=== PATIENT | male | born 1965 | race Caucasian/White ===

== ENCOUNTER → 2017-01-09 | Outpatient (REF) ==
[~2017-01-09] MED LIST: ASPIRIN 32325 MG/TAB PO; ASPIRIN 81M81 MG/TA2 PO; IMDUR 30MG30 MG/TAB PO; LIPITOR 80MG80 MG PO; LOPRESSOR 550 MG/TAB PO; NORVASC 10MG10 MG PO; PLAVIX 75MG TAB75 MG PO; ZOCOR 40MG40 MG PO
[2017-01-09 13:37] LABS: PSA-TOTAL 0.51 ng/mL (0-4); THYROID STIMULATING HORMONE 2.91 uIU/mL (0.465-4.680)
== END ==
LOC: ZLAB.WCH 12:37
PROVIDERS: Internal Medicine
DX: Z01.89 Encounter for other specified special examinations (principal)
CPT/HCPCS: G0103

== ENCOUNTER → 2017-01-21 | Outpatient (CLI) | payer OTHER ==
[2017-01-21 08:23] LABS: ALBUMIN 4.4 gm/dL (3.5-5.0); BILIRUBIN,DIRECT 0.5 mg/dL (0.0-0.4); BILIRUBIN,TOTAL 1.6 mg/dL (0.0-1.0); TOTAL PROTEIN 7.7 gm/dL (6.4-8.2)
== END ==
LOC: COL.LAB 07:45
PROVIDERS: Internal Medicine
DX: E80.6 Other disorders of bilirubin metabolism (principal)

== ENCOUNTER 2017-09-29 08:10 | Inpatient (IN) | payer OTHER ==
[~2017-09-29] VITALS: Ht 177.8 cm; Wt 105.6 kg
[2017-09-29] MEDS ORDERED: GLUCOPHAGE1000 MG PO (08:27)
[2017-09-29] MEDS ORDERED: ASPIRIN 81M81 MG/TA2 PO (08:27)
[2017-09-29 09:04] LABS: BASO % 0.2 % (0.0-2.0); EOS # 0.1 (0.0-0.7); EOS % 1.1 % (0-4.0); GRAN # 5.8 (1.4-6.5); HEMATOCRIT 45.2 % (42.0-52.0); HEMOGLOBIN 15.4 g/dl (13.5-18.0); LYMPH # 1.6 (1.2-3.4); LYMPH % 18.1 % (20.0-51.0); MEAN CELL VOLUME 85 fl (80.0-100.0); MEAN CORPUSCULAR HEMOGLOBIN 29 pg (27.0-31.0); MEAN CORPUSCULAR HGB CONC 34 g/dl (33.0-37.0); MEAN PLATELET VOLUME 10.1 fl (7.4-10.4); MONO % 12.1 % (1.7-9.3); PLATELET COUNT 219 K/mm3 (130-400); RED BLOOD COUNT 5.31 M/mm3 (4.20-5.60); REDCELL DISTRIBUTION WIDTH-CV 13.8 % (11.5-14.5)
[2017-09-29 09:13] LABS: ALBUMIN 4.4 gm/dL (3.5-5.0); BILIRUBIN,TOTAL 2.7 mg/dL (0.0-1.0); C-REACTIVE PROTEIN 5.2 mg/dL (0.0-0.9); CALCIUM 9.3 mg/dL (8.4-10.2); CREATININE, serum 0.98 mg/dL (0.66-1.25); POTASSIUM 3.5 mmol/L (3.4-5.0); TOTAL PROTEIN 8.8 gm/dL (6.4-8.2)
[2017-09-29 10:52] VITALS: BP 133/79; PULSE 94; TEMP 98
[2017-09-29 15:52] VITALS: BP 147/85; PULSE 80; TEMP 98.7
[2017-09-29 20:01] VITALS: BP 135/87; PULSE 70; TEMP 98.5
[2017-09-29 23:41] VITALS: BP 98/48; PULSE 53; TEMP 98.2
[2017-09-30 04:44] VITALS: BP 121/72; PULSE 63; TEMP 98.9
[2017-09-30 07:05] LABS: BASO % 0.2 % (0.0-2.0); EOS # 0.2 (0.0-0.7); EOS % 3.5 % (0-4.0); GRAN # 3.7 (1.4-6.5); GRAN % 59.3 % (42.2-75.2); HEMATOCRIT 41.7 % (42.0-52.0); LYMPH # 1.6 (1.2-3.4); LYMPH % 25.9 % (20.0-51.0); MEAN CELL VOLUME 87 fl (80.0-100.0); MEAN CORPUSCULAR HEMOGLOBIN 29 pg (27.0-31.0); MEAN CORPUSCULAR HGB CONC 34 g/dl (33.0-37.0); MEAN PLATELET VOLUME 10.3 fl (7.4-10.4); MONO # 0.7 (0.1-0.6); MONO % 10.6 % (1.7-9.3); PLATELET COUNT 206 K/mm3 (130-400); RED BLOOD COUNT 4.79 M/mm3 (4.20-5.60); REDCELL DISTRIBUTION WIDTH-CV 13.8 % (11.5-14.5)
[2017-09-30 07:12] LABS: CALCIUM 8.3 mg/dL (8.4-10.2); CREATININE, serum 0.92 mg/dL (0.66-1.25); POTASSIUM 3.9 mmol/L (3.4-5.0)
[2017-09-30 07:29] VITALS: BP 133/78; PULSE 61; TEMP 98
[2017-09-30] MEDS ORDERED: DOXYCYCLINE HY100 MG PO (10:14)
== END 2017-09-30 12:10 | disposition home or self-care (01) | DRG 603 ==
LOC: COL.ER 08:10 → MEDICAL 10:03
PROVIDERS: Emergency Medicine; Physician Assistant
DX: L03.116 Cellulitis of left lower limb (principal); I10 Essential (primary) hypertension; E11.65 Type 2 diabetes mellitus with hyperglycemia; E78.5 Hyperlipidemia, unspecified; L27.1 Localized skin eruption due to drugs and medicaments taken internally; T36.8X5A Adverse effect of other systemic antibiotics, initial encounter; Z95.1 Presence of aortocoronary bypass graft; Z95.5 Presence of coronary angioplasty implant and graft; Z79.84 Long term (current) use of oral hypoglycemic drugs; L03.032 Cellulitis of left toe; L60.0 Ingrowing nail
CPT/HCPCS: 99223-AI; 99239; J0295; J1200; J1650; J1815; J3370; J7030; J7050

== ENCOUNTER → 2018-01-03 | Outpatient (CLI) | payer OTHER ==
[~2018-01-03] MED LIST changes: +DOXYCYCLINE HY100 MG PO; +GLUCOPHAGE1000 MG PO
[2018-01-03 08:28] LABS: BASO % 0.2 % (0.0-2.0); EOS # 0.1 (0.0-0.7); GRAN % 61.4 % (42.2-75.2); HEMATOCRIT 47.3 % (42.0-52.0); HEMOGLOBIN 15.5 g/dl (13.5-18.0); LYMPH # 1.7 (1.2-3.4); LYMPH % 25.9 % (20.0-51.0); MEAN CELL VOLUME 88 fl (80.0-100.0); MEAN CORPUSCULAR HEMOGLOBIN 29 pg (27.0-31.0); MEAN CORPUSCULAR HGB CONC 33 g/dl (33.0-37.0); MEAN PLATELET VOLUME 10.1 fl (7.4-10.4); MONO # 0.7 (0.1-0.6); MONO % 10.3 % (1.7-9.3); PLATELET COUNT 250 K/mm3 (130-400); REDCELL DISTRIBUTION WIDTH-CV 13.7 % (11.5-14.5)
[2018-01-03 08:42] LABS: ALBUMIN 4.5 gm/dL (3.5-5.0); BILIRUBIN,TOTAL 1.9 mg/dL (0.0-1.0); CALCIUM 9.6 mg/dL (8.4-10.2); CHOLESTEROL RISK RATIO 3.2; CREATININE, serum 0.95 mg/dL (0.66-1.25); MAGNESIUM 1.9 mg/dL (1.6-2.3); POTASSIUM 3.9 mmol/L (3.4-5.0); TOTAL PROTEIN 8.1 gm/dL (6.4-8.2)
[2018-01-03 08:46] LABS: PH 5 (5-8); SQUAMOUS EPITHELIAL None Seen /hpf; URINE APPEARANCE Clear; URINE BACTERIA None Seen /hpf; URINE BILIRUBIN Negative (NEGATIVE); URINE BLOOD Negative (NEGATIVE); URINE COLOR Yellow; URINE GLUCOSE Negative (NEGATIVE); URINE KETONE Negative (NEGATIVE); URINE LEUKOCYTE ESTERASE Negative (NEGATIVE); URINE NITRATE Negative (NEGATIVE); URINE PROTEIN(semi-quant) Negative (NEGATIVE); URINE RBC 0-2 /hpf; URINE UROBILINOGEN Negative (NEGATIVE); URINE WBC 0-2 /hpf
[2018-01-03 08:58] LABS: ERYTHROCYTE SEDIMENTATION RATE 8 mm/hr (0-30)
[2018-01-03 08:59] LABS: COLLECTION METHOD CLEAN CATCH
[2018-01-03 09:12] LABS: PSA-TOTAL 0.6 ng/mL (0-4)
[2018-01-03 23:39] LABS: URINE MICROALBUMIN 1.8 mg/dL (0.0-1.7)
== END ==
LOC: COL.LAB 07:42
PROVIDERS: Internal Medicine
DX: Z00.00 Encounter for general adult medical examination without abnormal findings (principal); Z12.5 Encounter for screening for malignant neoplasm of prostate; Z12.11 Encounter for screening for malignant neoplasm of colon
CPT/HCPCS: G0103

== ENCOUNTER → 2018-07-08 | Outpatient (REF) | LOC: ZLAB.WCH 16:03 | DX: Z01.89 Encounter for other specified special examinations (principal) ==

== ENCOUNTER 2020-07-16 18:15 | Inpatient (IN) | payer OTHER ==
[2020-07-16 20:15] VITALS: BP 123/70; PULSE 82; TEMP 99.6
[2020-07-16] MEDS ORDERED: COZAAR 50MG50 MG/TAB PO (20:50)
[2020-07-16] MEDS ORDERED: TRULICITY1.5 MG/0.5 SQ (20:51)
--- NOTE | 2020-07-16 23:22 | NUR ---
Patient came to medical floor room 305 from [facility] at 20:05 pm. Patient sitting up in bed upon enter the room. Patient states feeling very hungry and thristy. Provided sandwitch box and ice water. Assessment completed and charted. Med req completed. Patient denies chest pain or discomfort. Occasional non-productive moist cough noted. Patient denies SOB or dyspnea while at rest. Patient reports SOB upon talking or with ambulation. Scheduled meds given per AUG. Oriented patient to the room, call light, bathroom, etc. Call light within reach. Patient denies any needs at this time.
[2020-07-16 23:51] LABS: ARTERIAL BLD GAS TCO2 CT 25.2; ARTERIAL BLOOD GAS BASE EXCESS 0.7 (-2-2); ARTERIAL BLOOD GAS HCO3 24.1 meq/L (22-26); ARTERIAL BLOOD GAS PCO2 35.3 mmHg (35-45); ARTERIAL BLOOD GAS PO2 70.6 mmHg (80-100); ARTERIAL BLOOD GAS pH 7.45 (7.35-7.45)
[2020-07-17] VITALS (8 sets, daily range): BP systolic 110–147; BP diastolic 57–73; PULSE 65–83; TEMP 97.8–98.6
[2020-07-17 04:07] LABS: COLLECTION METHOD CLEAN CATCH
[2020-07-17 04:23] LABS: MUCOUS Present /lpf; PH 5 (5-8); SQUAMOUS EPITHELIAL None Seen /hpf; URINE APPEARANCE Clear; URINE BACTERIA None Seen /hpf; URINE BILIRUBIN Negative (NEGATIVE); URINE BLOOD Negative (NEGATIVE); URINE COLOR Yellow; URINE GLUCOSE 1+ (NEGATIVE); URINE KETONE Negative (NEGATIVE); URINE LEUKOCYTE ESTERASE Negative (NEGATIVE); URINE NITRATE Negative (NEGATIVE); URINE PROTEIN(semi-quant) 1+ (NEGATIVE); URINE RBC 0-2 /hpf; URINE UROBILINOGEN Negative (NEGATIVE)
--- NOTE | 2020-07-17 06:24 | NUR ---
VS stable throughout the night. Currently on 6L via NC. No acute respiratory distress noted. Call light within reach. Patient denies any needs at this time.
[2020-07-17 07:30] LABS: HEMATOCRIT 44.1 % (42.0-52.0); HEMOGLOBIN 14.4 g/dl (13.5-18.0); MEAN CELL VOLUME 87 fl (80.0-100.0); MEAN CORPUSCULAR HEMOGLOBIN 29 pg (27.0-31.0); MEAN CORPUSCULAR HGB CONC 33 g/dl (33.0-37.0); MEAN PLATELET VOLUME 10.9 fl (7.4-10.4); PLATELET COUNT 185 K/mm3 (130-400); RED BLOOD COUNT 5.05 M/mm3 (4.20-5.60); REDCELL DISTRIBUTION WIDTH-CV 13.4 % (11.5-14.5)
[2020-07-17 07:44] LABS: ALBUMIN 3.5 gm/dL (3.5-5.0); CALCIUM 8.2 mg/dL (8.4-10.2); CREATININE, serum 1.01 (0.66-1.25); POTASSIUM 4.2 mmol/L (3.4-5.0); TOTAL PROTEIN 6.8 gm/dL (6.4-8.2)
--- NOTE | 2020-07-17 09:11 | NUR ---
SPOO2 85% ON 6 LPM NC PLACED PT6 ON HFNC 10 LPM 91%
[2020-07-17 09:39] LABS: BURR CELLS 3+; NEUTROPHILS 81 % (42.0-75.2)
[2020-07-17 09:40] LABS: POIKILOCYTOSIS 3+
[2020-07-17 09:41] LABS: OVALOCYTES 1+; PLATELET ESTIMATE NORMAL (NORMAL)
[2020-07-17 09:43] LABS: HYPOCHROMIA 1+; LYMPHOCYTE 6 % (20.0-51.0)
--- NOTE | 2020-07-17 12:21 | NUR ---
Patient alert and oriented. denies any pain, nausea, diarrhea or SOb at this time. On 10L O2 HFNC at 91-93%. Bilateral mild tremor on upper extremities. call light within reach. Patient started on Lovenox, inform patient med is used prophylasix to prevent DVT during hospital stay. IVF NS decresed from 100ML to 60ML as ordered. started on first dose of Remdesivir 200mg/250ml. educated patient on antiviral medication to help treat his covid19+ diagnosis.
--- NOTE | 2020-07-17 13:39 | NUR ---
The patient is positive for COVID. SW contacted the patient's room phone to complete intake. The patient lives in [place] with his , Ana Lilia (ph#[phone]). His is currently hospitalized at this time. He reports independence with ADLs and does not have any DME. The patient's PCP is Dr. Raymond Mccoy and he receives his medications from [facility]. He reports no difficulties obtaining his meds. The patient does not have a DPOA-HC. The patient plans to return home with his upon discharge. He is currently on 10 liters of oxygen, via high devon cannula. SW to continue to follow.
--- NOTE | 2020-07-17 23:11 | NUR ---
Patient alert and oriented. Sitting up in bed upon shift start. Patient denies any pain or discomfort. Denies SOB or dyspnea while at rest. Patient reports he gets SOB upon gets up to ambulate. IVF infusing well at 60ml/hr via right AC. All scheduled meds given per MAR. Call light within reach. Patient denies any needs at this time.
[2020-07-18 04:47] VITALS: BP 120/67; PULSE 69; TEMP 98.1
[2020-07-18 05:52] LABS: ARTERIAL BLD GAS TCO2 CT 21.8; ARTERIAL BLOOD GAS BASE EXCESS -1.8 (-2-2); ARTERIAL BLOOD GAS HCO3 20.9 meq/L (22-26); ARTERIAL BLOOD GAS PCO2 30.3 mmHg (35-45); ARTERIAL BLOOD GAS PO2 56.9 mmHg (80-100); ARTERIAL BLOOD GAS pH 7.46 (7.35-7.45)
[2020-07-18 07:45] VITALS: BP 111/62; PULSE 70; TEMP 97.8
[2020-07-18 08:09] LABS: GRAN # 8.6 (1.4-6.5); GRAN % 85.7 % (42.2-75.2); HEMATOCRIT 44.1 % (42.0-52.0); HEMOGLOBIN 14.5 g/dl (13.5-18.0); LYMPH # 0.5 (1.2-3.4); LYMPH % 5.2 % (20.0-51.0); MEAN CELL VOLUME 88 fl (80.0-100.0); MEAN CORPUSCULAR HEMOGLOBIN 29 pg (27.0-31.0); MEAN CORPUSCULAR HGB CONC 33 g/dl (33.0-37.0); MEAN PLATELET VOLUME 11.1 fl (7.4-10.4); MONO # 0.8 (0.1-0.6); MONO % 8.1 % (1.7-9.3); PLATELET COUNT 210 K/mm3 (130-400); RED BLOOD COUNT 4.99 M/mm3 (4.20-5.60); REDCELL DISTRIBUTION WIDTH-CV 13.6 % (11.5-14.5)
[2020-07-18 08:30] LABS: CALCIUM 8.3 mg/dL (8.4-10.2); CREATININE, serum 0.88 (0.66-1.25); MAGNESIUM 2.3 mg/dL (1.6-2.3); POTASSIUM 4.3 mmol/L (3.4-5.0)
[2020-07-18 12:04] VITALS: BP 114/62; PULSE 71; TEMP 97.6
--- NOTE | 2020-07-18 12:48 | NUR ---
Patient alert and oriented. denies any pain. patient report improved breathing today. On airvo 60L at 91-93% . IVF discontnued. patient started on Levemir 5 Units BID
--- NOTE | 2020-07-18 12:59 | NUR ---
Patient is currently on 60 liters of oxygen at this time. ALY collaborated with MEETA Jefferson who advised patient has been independent in room. ALY will continue to follow.
[2020-07-18 15:54] VITALS: BP 114/60; PULSE 72; TEMP 97.6
--- NOTE | 2020-07-18 19:07 | NUR ---
patient resting in bed at the moment. call light within reach. Ileana, (CLEMENT) placed PICC in patient SUMAN. patient have no concern or question at this time.
[2020-07-18 19:43] VITALS: BP 118/64; PULSE 70; TEMP 97.4
[2020-07-18 23:58] VITALS: BP 120/64; PULSE 62; TEMP 97.4
[2020-07-19 04:44] VITALS: BP 112/67; PULSE 64; TEMP 97.6
[2020-07-19 07:34] VITALS: BP 115/68; PULSE 62; TEMP 97.5
--- NOTE | 2020-07-19 08:20 | NUR ---
Shift assessment complete. Airvo at 60 lpm 79%, sats low to mid 90s. Reports SOA with exertion. Lungs coarse to auscultation. Heart RRR. A&Ox4. Dry cough. Right UA PICC w/o S/S complication, blood return noted. Denies pain. Is experiencing some shakiness in bilaterall hands when attempting to reach for items, pt reports this is new in the last day or two. Denies other needs. Call light in reach.
[2020-07-19 11:50] VITALS: BP 107/71; PULSE 66; TEMP 97.4
[2020-07-19 16:14] VITALS: BP 124/62; PULSE 69; TEMP 97.7
--- NOTE | 2020-07-19 17:33 | NUR ---
Remains on airvo 60 lpm 79%, sats in low 90s. Reports improvement in fatigue and SOA throughout day. Blood sugars remain elevated, insulin administered as ordered.
--- NOTE | 2020-07-19 20:00 | NUR ---
Assessment complete. Patient is awake in bed; he is alert and oriented with no complaints of pain. He wears airvo, 60 liters, and is satting 91-92% with no signs of increased work of breathing. Lung sounds have audible fine crackles in bases and are clear in upper lobes. Right upper arm PICC flushes well. Call light in reach, will continue to monitor.
[2020-07-19 20:02] VITALS: BP 115/62; PULSE 65; TEMP 97.7
[2020-07-20] VITALS (8 sets, daily range): BP systolic 112–126; BP diastolic 66–72; PULSE 57–64; TEMP 97.5–98.2
[2020-07-20 07:08] LABS: HEMATOCRIT 43.2 % (42.0-52.0); HEMOGLOBIN 13.7 g/dl (13.5-18.0); MEAN CELL VOLUME 89 fl (80.0-100.0); MEAN CORPUSCULAR HEMOGLOBIN 28 pg (27.0-31.0); MEAN CORPUSCULAR HGB CONC 32 g/dl (33.0-37.0); MEAN PLATELET VOLUME 11.1 fl (7.4-10.4); PLATELET COUNT 280 K/mm3 (130-400); RED BLOOD COUNT 4.84 M/mm3 (4.20-5.60); REDCELL DISTRIBUTION WIDTH-CV 14.1 % (11.5-14.5)
[2020-07-20 07:12] LABS: BILIRUBIN,TOTAL 0.9 mg/dL (0.0-1.0); CALCIUM 8.6 mg/dL (8.4-10.2); CREATININE, serum 0.73 (0.66-1.25); POTASSIUM 4.1 mmol/L (3.4-5.0); TOTAL PROTEIN 6.2 gm/dL (6.4-8.2)
--- NOTE | 2020-07-20 08:17 | NUR ---
Assessment completed, alert/oriented, vital signs stable, patient reports feeling better overall, still has a dry/ non productive cough, lungs CTA/ diminished bases, no wheezes or crackles noted, still having some SOA with exertion and is requring Airvo 60/80% at at this time, he is sitting up in bed eating breakfast, insulin and morning meds given , he denies other needs at this time
[2020-07-20 09:45] LABS: BAND 1 % (0-10); HYPOCHROMIA 2+; LYMPHOCYTE 8 % (20.0-51.0); NEUTROPHILS 82 % (42.0-75.2); PLATELET ESTIMATE NORMAL (NORMAL)
[2020-07-20 09:48] LABS: BURR CELLS 2+; OVALOCYTES 1+
[2020-07-21 03:41] VITALS: BP 120/70; PULSE 58; TEMP 97.7
[2020-07-21 09:41] VITALS: BP 118/64; PULSE 60; TEMP 98.5
[2020-07-21 12:48] VITALS: BP 123/76; PULSE 56; TEMP 98.3
[2020-07-21 16:52] VITALS: BP 125/73; PULSE 70
[2020-07-21 19:22] VITALS: BP 119/78; PULSE 57; TEMP 97.7
--- NOTE | 2020-07-21 21:19 | NUR ---
Patient alert and oriented x 4, and able to make needs known. Denies having pain and discomfort at this time. Double lumen PICC to RUE. Site without redness, warmth, swelling, and pain. Dressing CDI. ISAAC wrap in place. Denies having SOB and dyspnea at rest and with exertion. On Airvo at 40L 48%. Continues on Airborn/contact precautions per protocol. LS CTA in upper lobes, diminished in lower. Respirations even and unlabored. HRR. Capillary refill less than 3 seconds. Non-tenting skin turgor. BSAx4. Abdomen soft and non-tender. No edema. Voices no questions, needs, or concerns at this time. Resting in bed with call light within reach.
[2020-07-22 00:55] VITALS: BP 119/78; PULSE 55; TEMP 97.5
[2020-07-22 04:56] VITALS: BP 125/73; PULSE 55; TEMP 97.5
--- NOTE | 2020-07-22 05:55 | NUR ---
Patient has been resting in bed with call light within reach. Has voiced no questions, needs, or concerns at this time. Continues on Airvo at 40L 48%.
--- NOTE | 2020-07-22 08:26 | NUR ---
PATIENT SPO2 ON 4 LPM 92% AT REST. SPO2 DURING AMBULATION ON 4LPM 85-88. pATIENT NEEDS 3 LPM AT REST AND 4 LPM DURING AMBULATION.
[2020-07-22 08:30] VITALS: BP 117/72; PULSE 58; TEMP 97.7
[2020-07-22] MEDS ORDERED: OXYGEN NASAL.CANN (11:10)
[2020-07-22] MEDS ORDERED: DECADRON6 MG PO (12:07)
[2020-07-22 12:19] VITALS: BP 122/74; PULSE 59; TEMP 97.8
--- NOTE | 2020-07-22 12:46 | NUR ---
Chaplain smith for patient while standing outside of door.
--- NOTE | 2020-07-22 13:12 | NUR ---
Nursing Program Manager collaborated with Hospitalist who advised patient will discharge home today on home oxygen. Per exercise oximetry, patient will need 4 liters. SW contacted patient to discuss discharge plan. Patient states his uses [facility] so he would like to have his supplies through [facility] as well. ALY contacted Nati with [facility] and faxed referral/orders. Nati advised supplies would be delivered this afternoon. ALY spoke with patient about Home Health services as he is being discharged home on home oxygen. Patient does not feel he needs these services. ALY collaborated the above information to RNJeniffer. No additional needs at this time.
--- NOTE | 2020-07-22 14:26 | NUR ---
MEETA KING AT BEDSIDE AT THIS TIME FOR PICC REMOVAL. DISCHARGE INSTRUCTIONS GIVEN, PT WILL DC SOON HIS RIDE ARRIVES. PT WILL LEAVE ON 4L O2. NO FURTHER CONCERNS.
== END 2020-07-22 15:00 | disposition home or self-care (01) | DRG 177 ==
LOC: MEDICAL 18:15
PROVIDERS: Hospitalist; Student in an Organized Health Care Education/Training Program; ADMIT Internal Medicine
PROC: 02HV33Z Insertion of Infusion Device into Superior Vena Cava, Percutaneous Approach (ICD-10-PCS; 2020-07-18)
PROC: XW033E5 Introduction of Remdesivir Anti-infective into Peripheral Vein, Percutaneous Approach, New Technology Group 5 (ICD-10-PCS; principal; 2020-07-19)
DX: U07.1 COVID-19 (principal); J12.82 Pneumonia due to coronavirus disease 2019; J96.01 Acute respiratory failure with hypoxia; N17.9 Acute kidney failure, unspecified; K80.20 Calculus of gallbladder without cholecystitis without obstruction; E78.5 Hyperlipidemia, unspecified; E11.9 Type 2 diabetes mellitus without complications; I25.10 Atherosclerotic heart disease of native coronary artery without angina pectoris; Z95.1 Presence of aortocoronary bypass graft; Z79.82 Long term (current) use of aspirin; Z79.84 Long term (current) use of oral hypoglycemic drugs
CPT/HCPCS: 99223-AI; 99232-AI; 99233-AI; 99239; C1751; J0696; J1644; J1650; J1815; J7030; J7050; J8540

== ENCOUNTER 2021-05-29 08:00 | Outpatient (RCR) | payer OTHER ==
[~2021-05-29 08:00] MED LIST changes: +COZAAR 50MG50 MG/TAB PO; +DECADRON6 MG PO; +OXYGEN NASAL.CANN; +TRULICITY1.5 MG/0.5 SQ
== END 2021-05-30 14:29 | disposition home or self-care (01) ==
LOC: WSPT 08:00
DX: M25.811 Other specified joint disorders, right shoulder (principal)
CPT/HCPCS: G0283-GP

== ENCOUNTER 2021-12-18 12:41 | Day surgery (SDC) | payer OTHER ==
[2021-12-18] VITALS (132 sets, daily range): BP systolic 127–146; BP diastolic 82–91; PULSE 68–106; TEMP 97.6; O2SAT 65–98
[~2021-12-18] VITALS: Ht 177.8 cm; Wt 104.3 kg
[2021-12-18] MEDS ORDERED: SYNTHROID0.05 MG/TA PO (13:41)
[2021-12-18] MEDS ORDERED: COZAAR 50MG50 MG/TAB PO (13:42)
[2021-12-18 13:44] LABS: HEMATOCRIT 45.2 % (42.0-52.0); HEMOGLOBIN 15.4 g/dl (13.5-18.0); MEAN CELL VOLUME 86 fl (80.0-100.0); MEAN CORPUSCULAR HEMOGLOBIN 29 pg (27-31); MEAN CORPUSCULAR HGB CONC 34 g/dl (33.0-37.0); PLATELET COUNT 248 K/mm3 (130-400); RED BLOOD COUNT 5.23 M/mm3 (4.20-5.60); REDCELL DISTRIBUTION WIDTH-CV 13.6 % (11.5-14.5)
[2021-12-18 13:49] LABS: INR 1.1 (0.8-3.0); PROTHROMBIN TIME 12.3 SECONDS (9.7-12.8)
[2021-12-18 13:52] LABS: PARTIAL THROMBOPLASTIN TIME 39.2 SECONDS (26.0-37.0)
[2021-12-18 13:57] LABS: CALCIUM 9.4 mg/dL (8.4-10.2); CREATININE, serum 1.18 mg/dL (0.72-1.25)
--- NOTE | 2021-12-18 14:21 | NUR ---
SEE MERGE FOR ALL MEDICATION ADMINISTRATION TIMES, INTA AND POST SEDATION ASSESSMENTS
--- NOTE | 2021-12-18 19:30 | NUR ---
Pt has done well during his recovery. Rt groin site remained soft without evidence of bleeding. I have reviewed discharge instructions with pt who verbalized understanding. written instructions were provided. Pt has been ambulatory in his room with steady gait. IV has been dc'd with cath intact, dressing applied. pt is escorted to exit via wheelchair.
== END 2021-12-18 20:26 | disposition home or self-care (01) ==
LOC: COL.CAR 12:41
PROVIDERS: Internal Medicine Interventional Cardiology
DX: I25.10 Atherosclerotic heart disease of native coronary artery without angina pectoris (principal); I10 Essential (primary) hypertension; E87.5 Hyperkalemia; E11.9 Type 2 diabetes mellitus without complications; Z86.16 Personal history of COVID-19
CPT/HCPCS: C1760; C1769; C1894; J1644; J2250; J3010